=== PATIENT | female | born 1970 | race Hispanic/Latino ===

== ENCOUNTER 2017-06-17 16:34 | Emergency (ER) | payer BC ==
[2017-06-17 17:53] VITALS: BP 123/67
--- NOTE | 2017-06-17 18:02 | Emergency Department Report ---
HPI - General Chief Complaint: Allergic Reaction Time Seen by Provider: 06/17/17 17:45 - HPI HPI: Patient with red rash on her chest about 3 hours ago after an MRI of her spine with contrast. She also had hoarseness and the sensation that she had a hard time swallowing. She now has no rash, no dysphagia but is slightly hoarse. She has not been given any medications yet. No F/C. No tongue or lip swelling. Prior history of bee allergies. ED Past Medical Hx - Past Medical History Previous Medical History?: No - Surgical History Additional Surgical History: Spinal fusion - Social History Smoking Status: Never Smoker Substance Use Type: None - Medications Home Medications: Home Medications Medication Instructions Recorded Confirmed Last Taken Type EPINEPHrine [Epipen 2-Sonido] 0.3 mg IJ PRN #1 auto.injct 06/17/17 Unknown Rx predniSONE [Deltasone] 40 mg PO QDAY 5 Days #10 tab 06/17/17 Unknown Rx ED Review of Systems ROS: Stated complaint: ALLERGIC REACTION Other details as noted in HPI Constitutional: denies: chills, fever Eyes: denies: eye pain, eye discharge, vision change ENT: denies: ear pain, throat pain Respiratory: denies: cough, shortness of breath, wheezing Cardiovascular: denies: chest pain, palpitations Endocrine: no symptoms reported Gastrointestinal: denies: abdominal pain, nausea, diarrhea Genitourinary: denies: urgency, dysuria, discharge Musculoskeletal: denies: back pain, joint swelling, arthralgia Skin: rash. denies: lesions Neurological: denies: headache, weakness, paresthesias Psychiatric: denies: anxiety, depression Hematological/Lymphatic: denies: easy bleeding, easy bruising Physical Exam - Physical Exam Vital Signs: Vital Signs 06/17/17 06/17/17 06/17/17 16:43 16:45 16:53 Temperature 97 F L Pulse Rate 82 Respiratory 18 Rate Blood Pressure 135/77 135/77 135/77 O2 Sat by Pulse 98 99 98 Oximetry 06/17/17 06/17/17 06/17/17 17:00 17:15 17:45 Temperature Pulse Rate Respiratory Rate Blood Pressure 123/67 135/77 123/67 O2 Sat by Pulse 100 97 97 Oximetry Physical Exam: Patient with NAD. A&O x 4. CV:RRR no Murmurs, rubs or gallops, Pulm: CTAB no wheezing, rhonchi or rales. HEENT: TMs clear bilaterally, Nares pink and moist , OP clear no edema, lips non-edematous, tongue non-edematous. Skin: dry, pink with no rash currently. GI: NTND no peritonitis. Neuro: GCS 15 with no focal deficits. ED Course Vital Signs 06/17/17 06/17/17 06/17/17 16:43 16:45 16:53 Temperature 97 F L Pulse Rate 82 Respiratory 18 Rate Blood Pressure 135/77 135/77 135/77 O2 Sat by Pulse 98 99 98 Oximetry 06/17/17 06/17/17 06/17/17 17:00 17:15 17:45 Temperature Pulse Rate Respiratory Rate Blood Pressure 123/67 135/77 123/67 O2 Sat by Pulse 100 97 97 Oximetry ED Medical Decision Making - Medical Decision Making Patient exam is completely normal. With normal vitals we will give her a steroid shot and send her home on steroids and have an epipen around. Critical care attestation.: If time is entered above; I have spent that time in minutes in the direct care of this critically ill patient, excluding procedure time. ED Disposition Clinical Impression: Allergic reaction to contrast dye Qualifiers: Encounter type: initial encounter Qualified Code(s): T50.8X5A - Adverse effect of diagnostic agents, initial encounter Disposition: TO HOME OR SELFCARE Is pt being admited?: No Does the pt Need Aspirin: No Condition: Stable Instructions: Anaphylaxis (ED), Urticaria (ED) Prescriptions: EPINEPHrine [Epipen 2-Sonido] 0.3 mg IJ PRN #1 auto.injct predniSONE [Deltasone] 40 mg PO QDAY 5 Days #10 tab Referrals: PRIMARY CARE, [Primary Care Provider] - 3-5 Days Time of Disposition: 18:08
== END 2017-06-17 18:28 | disposition home or self-care (01) ==
LOC: ED 16:34
DX: T50.8X5A Adverse effect of diagnostic agents, initial encounter (principal); R21 Rash and other nonspecific skin eruption; Y92.9 Unspecified place or not applicable
CPT/HCPCS: 99283; J2920